=== PATIENT | male | born 1970 | race Caucasian/White ===

== ENCOUNTER → 2018-01-10 | Outpatient (CLI) | payer BC ==
--- NOTE | 2018-01-19 12:28 | HM ---
HOLTER MONITOR REPORT 24 HOUR HOLTER MONITOR REPORT: A 47-year-old male patient with palpitations. A 24 Holter monitor shows sinus mechanism and sinus arrhythmias. Heart ranging from 43 to 125 beats per minute. Average 65 beats per minute. No significant daytime bradycardia. Mild nighttime bradycardia noted. Infrequent PVCs occasionally in a bigeminal and trigeminal pattern but no sustained or nonsustained arrhythmias. MMODL / IJN: [id number] /
== END | disposition home or self-care (01) ==
LOC: RADECHMAIN 12:30
PROVIDERS: ATTEND Family Medicine
DX: I49.9 Cardiac arrhythmia, unspecified (principal); I49.3 Ventricular premature depolarization; R00.2 Palpitations
CPT/HCPCS: 93225; 93226